=== PATIENT | female | born 1960 | race Caucasian/White ===

== ENCOUNTER → 2020-01-09 | Day surgery (SDC) | payer BC ==
--- NOTE | 2020-01-08 17:42 | HP ---
HISTORY AND PHYSICAL DATE OF SURGERY: 01/09/2020 Mackenzie Figueroa is a 60-year-old patient seen with a displaced comminuted left distal radius fracture. I recommended open reduction, internal fixation. I discussed the procedure, risks, complications, benefits and recovery. The patient was agreeable. Consent was obtained. PAST MEDICAL HISTORY: Noncontributory. PAST SURGICAL HISTORY: Noncontributory. DAILY MEDICATIONS: Clonazepam, gabapentin. ALLERGIES: NONE. SOCIAL HISTORY: She denies current tobacco use. PHYSICAL EVALUATION OF THE LEFT WRIST: She is tender along the distal radius. She has limited range of motion. There is some diffuse swelling. She is able to move her fingers without any significant pain. Her distal neurovascular exam is intact. RADIOGRAPHS: Radiographs of the left wrist revealed a comminuted displaced intra-articular fracture of the distal radius. IMPRESSION: Left comminuted/displaced left distal radius fracture. PLAN: Open reduction, internal fixation, left distal radius. MMODL / IJN: [id number] /
[~2020-01-09] MED LIST: BUPIVACAINE (PF) 0.25% 30 ML VIAL SQ ONE; DEXAMETHASONE SOD PHOSPHATE 10 MG/ML 1 ML VIAL IV ONE; HYDROmorphone 0.5 MG/0.5 ML SYRINGE IVP PRN; LACTATED RINGERS 1,000 ML IV SCH; LIDOCAINE 1% (10MG/ML) FOR IV START INTRADERMA ONE; LIDOCAINE 1% INJ 10MG/ML (20 ML MDV) ONE; MIDAZOLAM 2 MG/2 ML VIAL ONE; ONDANSETRON 4 MG/2 ML VIAL IVP ONE; PROPOFOL 10 MG/ML 20 ML VIAL IV ONE; ROPIVACAINE 5 MG/ML 30 ML VIAL ONE; SCOPOLAMINE 1.5MG/72HR PATCH TRANSDERM ONE; ceFAZolin 1,000 MG in SODIUM CHLORIDE 0.9% 1,000 ML IRRIGATION ONE; diphenhydrAMINE 50 MG/ML 1 ML VIAL IVP ONE; fentaNYL (PF) 50 MCG/ML 2 ML AMP ONE
[2020-01-09 11:33] VITALS: RESP 16; TEMP 97
--- NOTE | 2020-01-09 11:36 | XR ---
EXAMINATION TYPE: XR wrist limited LT, FL guidance operating room DATE OF EXAM: 01/09/2020 COMPARISON: NONE HISTORY: 59 year-old female left wrist ORIF FINDINGS: Intraoperative fluoroscopy during left wrist ORIF with volar plate and screw fixation along the dista l radius. FLUOROSCOPY Fluoroscopy time of 45 seconds was used during left wrist ORIF. 2 image/s document/s the procedure. IMPRESSION: Intraoperative fluoroscopy as above.
[2020-01-09] MEDS: fentaNYL (PF) 50 MCG/ML 2 ML AMP IV PRN ×2 (11:37→11:50)
--- NOTE | 2020-01-09 11:39 | P.OP ---
Date of Procedure: 01/09/20 Preoperative Diagnosis: Comminuted displaced intra-articular left distal radius fracture Postoperative Diagnosis: Comminuted displaced intra-articular left distal radius fracture Procedure(s) Performed: Open reduction and internal fixation left distal radius fracture Implants: Synthes distal volar wrist plate with appropriate length pegs and screws Anesthesia: SARAH local Surgeon: Javier Phillip Natural Developer #1: Jonatan Balderrama Estimated Blood Loss (ml): 12 Pathology: none sent Condition: stable Disposition: PACU Indications for Procedure: 59-year-old patient seen with a displaced comminuted left distal radius fracture. I recommended open reduction and internal fixation. Patient was agreeable and consent was obtained. Operative Findings: See description of procedure Description of Procedure: The patient was taken to the operative suite. The patient underwent a general anesthetic by the department of anesthesia. She received preoperative IV antibiotics. A well-padded tourniquet placed proximal left upper extremity. The left upper extremity was prepped and draped in the normal sterile orthopedic fashion. The extremity was elevated and tourniquet insufflated to 250. I made a standard volar incision sharply through skin. I dissected down to the fascia. The fascia was incised. We then bluntly dissected down to the fracture site. Blunt we Landers were used to allow soft tissue retraction. We noted a comminuted fracture with displacement and there was a small intra-articular extension. I now with the assistance of Sanjay JOHNSON reduced the fracture and held in a position. I now chose an appropriate distal volar wrist plate secured it and drilled our proximal screw to secure the plate. The C-arm was brought in confirming adequate alignment of plate. I now reduced the fracture again and Sanjay JOHNSON held it reduced while I inserted distal pegs and one more proximal screw. We reviewed the construct under fluoroscopy and noted excellent alignment of the fracture and good positioning of the hardware. Spot films were obtained to document this. The wound was irrigated. The subcutaneous soft tissues were approximated with 2-0 Vicryl. The skin was repaired with nylon suture. We applied sterile dressings. The tourniquet was released and noted immediate capillary refill all digits. We then applied a volar wrist splint with an Tim bandage. The patient was awakened, transferred to a bed in the recovery stable condition. Sanjay JOHNSON assisted the procedure.
[2020-01-09 13:37] VITALS: BP 137/85; PULSE 68
--- NOTE | 2020-01-09 13:46 | P.ANPRN ---
Procedure Note - Anesthesia - Nerve Block Performed Left Supraclavicular Single Time Out Performed: Yes (1155) Date of Procedure: 01/09/20 Procedure Start Time: 11:56 Procedure Stop Time: 12:02 Location of Patient: PreOp Indication: Acute Post-Operative Pain, Requested by Surgeon Specifically requested for management of pain by DrMecca: Javier Phillip Sedation Type: Sedate with meaningful contact maintained Preparation: Sterile Prep Position: Supine Catheter: None Needle Types: Pajunk Needle Gauge: 21 Ultrasound used to visualize needle placement: Yes Ultrasound used to observe medication spread: Yes Injectate: 0.5% Ropivacaine (see comment for volume) (25) Blood Aspirated: No Pain Paresthesia on Injection Noted: No Resistance on Injection: Normal Image Stored and Saved: Yes Events: Uneventful and Well Tolerated
== END | disposition home or self-care (01) ==
LOC: OR 08:03
PROVIDERS: ATTEND Orthopaedic Surgery
DX: S52.572A Other intraarticular fracture of lower end of left radius, initial encounter for closed fracture (principal); K21.9 Gastro-esophageal reflux disease without esophagitis; Z79.899 Other long term (current) drug therapy; X58.XXXA Exposure to other specified factors, initial encounter
CPT/HCPCS: 64415; 76942; 73100; 25608; C1713; J2250; J1200; J1100; J0690 ×2; J2405; J2001; J3010; J2795; J2704